=== PATIENT | female | born 1955 | race Caucasian/White ===

== ENCOUNTER 2016-10-22 10:33 | Outpatient (CLI) | payer OTHER ==
--- NOTE | 2016-10-22 11:29 | DIAGNOSTIC IMAGING REPORT ---
PROCEDURE: MG BILATERAL SCREENING W/CAD INDICATION: Screening. History of left breast carcinoma with lumpectomy and radiation (2011). Family history of breast carcinoma (aunt, great grandmother, cousin). TECHNIQUE: Bilateral CC and MLO digital views. COMPARISON: Comparison is made to prior studies from [facility] on 11/26/2014, and 11/03/2013. FINDINGS: Computer-aided detection applied. Moderately dense parenchymal pattern. There are resolving postoperative and postradiation changes in the upper outer left breast with mild increase in dystrophic calcifications. There is a 2.5 cm area of asymmetry in the lateral right breast (middle third, seen only on CC view). IMPRESSION: 1. Postoperative and postradiation changes in the upper outer left breast. 2. There is a 2.5 cm area of asymmetry in the lateral right breast (seen only on the CC view). While this may represent normal asymmetric parenchyma, underlying architectural distortion or mass should be considered. Further mammographic views (true lateral view, CC and MLO spot compression views) are recommended. In addition, right breast ultrasound is recommended. RESULT CODE: 0- Incomplete; needs additional evaluation. A. A negative report should not delay biopsy if a dominant or clinically suspicious mass is present. 10-15% of cancers are not identified by x-ray. B. A negative report may reinforce clinical impression. C. Adenosis and dense breasts may obscure an underlying neoplasm. D. False positive reports average 6-10%. E.. A yearly screening mammogram is recommended. A reminder letter will be scheduled.
== END 2016-10-22 23:00 ==
LOC: MAM SRH 10:33
DX: Z12.31 Encounter for screening mammogram for malignant neoplasm of breast (principal)

== ENCOUNTER 2016-10-24 14:55 | Outpatient (CLI) | payer OTHER ==
--- NOTE | 2016-10-24 18:52 | DIAGNOSTIC IMAGING REPORT ---
PROCEDURE: MG UNILATERAL DIAG-RT W/CAD INDICATION: Follow-up asymmetric density in right breast. History of left breast carcinoma. TECHNIQUE: True lateral digital view of the right breast. In addition, spot compression CC and MLO views were obtained of the lateral right breast (region of clinical concern). Finally, high-resolution right breast ultrasound was performed (18 mHz). COMPARISON: Comparison is made to screening mammogram on 10/22/2016. FINDINGS: MAMMOGRAM: Computer-aided detection applied. Moderately dense. Normal parenchyma. No evidence of mass or architectural distortion. BREAST ULTRASOUND: Normal parenchyma. No evidence of mass or cyst. IMPRESSION: 1. Negative mammogram and negative right breast ultrasound. 2. Findings discussed with the patient. 3. Resume routine screening schedule (October 2016). RESULT CODE: 2- Benign finding(s). A. A negative report should not delay biopsy if a dominant or clinically suspicious mass is present. 10-15% of cancers are not identified by x-ray. B. A negative report may reinforce clinical impression. C. Adenosis and dense breasts may obscure an underlying neoplasm. D. False positive reports average 6-10%. E.. A yearly screening mammogram is recommended. A reminder letter will be scheduled.
== END 2016-10-24 23:00 ==
LOC: MAM SRH 14:55
DX: N64.89 Other specified disorders of breast (principal)